=== PATIENT | female | born 1995 | race Native Hawaiian/Other Pacific Islander ===

== ENCOUNTER 2025-09-02 09:52 | Outpatient (CLI) | payer OTHER, SELFPAY ==
[2025-09-03 20:55] LABS: HPV Source Cervix
[2025-09-07 10:28] LABS: Pap Test Digital Imaging Done
== END 2025-09-02 09:53 | disposition home or self-care (01) ==
PROVIDERS: Visit Provider Obstetrics & Gynecology
DX: Z12.4 Encounter for screening for malignant neoplasm of cervix (principal)
CPT/HCPCS: 87624; 87625; 88141; 88142; 88175

== ENCOUNTER 2025-09-14 12:37 | Outpatient (CLI) | payer OTHER, SELFPAY | END 2025-09-14 12:38 | disposition home or self-care (01) | LOC: NFLDREF 12:38 | PROVIDERS: Visit Provider Obstetrics & Gynecology | DX: Z31.69 Encounter for other general counseling and advice on procreation (principal) | CPT/HCPCS: 82670; 83001; 83520; 84443 ==

== ENCOUNTER 2025-09-22 10:55 | Outpatient (CLI) | payer OTHER, SELFPAY ==
--- NOTE | 2025-09-22 11:15 | CRLHL7_ITS ---
For Patients: As a result of the Century Cures Act, medical imaging exams and procedure reports are released immediately into your electronic medical record. You may view this report before your referring provider. If you have questions, please contact your health care provider. Indication: INFERTILITY Technique: Routine hysterosalpingogram performed. Fluoroscopic time 22 seconds. IMPRESSION: No endometrial canal filling defect. Normal spillage of contrast into the peritoneal cavity. Normal exam. Dictated by Odilon Medina MD @ 09/22/2025 12:28:55 PM (Electronically Signed)
--- NOTE | 2025-09-22 14:57 | P.GYNPRC_ITS ---
Procedure Note Date of procedure: 09/22/25 Will [facility] bill your pro fee for this procedure?: Yes Pre-op diagnosis: Primary Infertility Post-op diagnosis: Primary infertility Procedure: Hysterosalpingogram Anesthesia: none Complications: None Surgeon: Micheal Burton MD Findings: Normal exam. Procedure Description: PROCEDURE: After obtaining verbal consent, the patient was placed in the dorsal lithotomy position on the x-ray table. An open-sided bivalve speculum was introduced into the vagina and the cervix easily visualized. The cervix and vagina were then prepped with Betadine. The anterior lip of the cervix was grasped with a single-tooth tenaculum for traction. A balloon tipped double- lumen catheter was then gently inserted through the cervical opening into the uterine cavity to the level of the fundus. The balloon was insufflated with 3 mL of air. The tenaculum and speculum were removed. The patient was repositioned in the supine position, covered, and the radiologist was called to the room. A hysterosalpingogram was then performed. A total of 10 cc of Optiray 300 water soluble contrast dye was injected through the double-lumen catheter under moderate pressure. There was immediate fill of the uterine cavity to the cornua and immediate fill of both fallopian tubes and free spillage of dye on both sides. The balloon was deflated. The catheter was removed. The patient tolerated the procedure well, though she did have moderate cramping discomfort during and just after the procedure. She was discharged to home in stable condition and to follow up as [facility].
== END 2025-09-22 10:56 | disposition home or self-care (01) ==
LOC: RAD 10:55
PROVIDERS: Visit Provider Obstetrics & Gynecology
DX: N97.9 Female infertility, unspecified (principal); Z31.69 Encounter for other general counseling and advice on procreation
CPT/HCPCS: 58340; 74740; A4649; Q9967

== ENCOUNTER 2025-10-25 09:52 | Outpatient (CLI) | payer OTHER, SELFPAY ==
--- NOTE | 2025-10-25 10:15 | CRLHL7_ITS ---
For Patients: As a result of the Cures Act, medical imaging exams and procedure reports are released immediately into your electronic medical record. You may view this report before your referring provider. If you have questions, please contact your health care provider. INDICATION: Possible bicornuate uterus. TECHNIQUE: Pelvic MRI with T1 and T2 weighted images obtained. No gadolinium administered. FINDINGS: Mild indentation in the fundal portion of the endometrium with the overlying myometrium being intact. The uterus is otherwise unremarkable. Normal thickness of the endometrial stripe. 2.5 x 1.6 x 1.0 cm cyst containing hemorrhagic debris in the left ovary. 2.0 x 1.5 x 1.3 cm cyst in the left ovary. The left ovary is otherwise unremarkable. Normal appearance of the right ovary which contains small follicles. No other pelvic masses. No adenopathy. No other bony or soft tissue abnormalities identified. IMPRESSION: 1. 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 No uterine septum identified. 2. 2.5 cm hemorrhagic cyst versus endometrioma in the left ovary. Dictated by Juan José Hurtado MD @ 10/25/2025 12:03:26 PM (Electronically Signed)
== END 2025-10-25 09:53 | disposition home or self-care (01) ==
LOC: MRI 09:54
PROVIDERS: Visit Provider Obstetrics & Gynecology
DX: Q51.818 Other congenital malformations of uterus (principal); N83.202 Unspecified ovarian cyst, left side; N83.291 Other ovarian cyst, right side
CPT/HCPCS: 72195

== ENCOUNTER 2025-11-30 13:25 | Outpatient (CLI) | payer OTHER, SELFPAY | END 2025-11-30 13:26 | disposition home or self-care (01) | LOC: NFLDREF 12-06 18:26 | PROVIDERS: Visit Provider Obstetrics & Gynecology | DX: N97.0 Female infertility associated with anovulation (principal) | CPT/HCPCS: 84144 ==